=== PATIENT | female | born 1975 | race Caucasian/White ===

== ENCOUNTER 2019-09-14 13:23 | Emergency (ER) | payer OTHER, SELFPAY ==
[2019-09-14 13:45] VITALS: BP 108/69; PULSE 86; RESP 16; TEMP 36.4; O2SAT 97
--- NOTE | 2019-09-14 14:15 | ED.ALLEREA ---
HPI - Allergic Reaction General Chief complaint: Allergic Reaction Stated complaint: poisen wiley Source: patient Mode of arrival: ambulatory Limitations: no limitations History of Present Illness HPI narrative: Patient is a 44-year-old female who presents emergency department with complaints of poison wiley. Of this patient as states they have been clearing a lot in order to build a home, and had a lot of poison wiley exposure. Both she and her son have poison wiley. complaint: allergic reaction Onset (ago): day(s) Exposure: plant Symptoms: rash and itching Severity: mild Treatment prior to arrival: benadryl Related Data Allergies Allergy/AdvReac Type Severity Reaction Status Date / Time Penicillins Allergy Unknown Anaphylaxis Verified 09/14/19 14:11 Review of Systems Review of Systems: All systems reviewed & are unremarkable except as noted in HPI and below PMFSH Family History Family History Father Hypertension Mother Hypertension Cerebrovascular accident Social History Social History Smoking status: Never smoker Exam Const: General: no acute distress and alert Nutritional Appearance: well nourished Orientation/consciousness: patient oriented x3 HENMT: Head: normal to inspection Eyes: Conjunctivae: conjunctivae normal Pupils: Equal, round and reactive pupils present Neck: Neck: normal visual inspection Chest: Chest palpation & inspection: normal inspection of the chest Resp: Effort & Inspection: normal respiratory effort Auscultation: clear to auscultation bilaterally Cardio: Rate: regular rate Rhythm: regular rhythm GI: GI Palp: Yes Soft to palpation and No Tenderness to palpation present (GI) Auscultation: normal bowel sounds Back/Spine/Pelvis: Back: no CVA tenderness Skin: General skin exam: normal color Other: Patient has poison wiley to bilateral upper extremities, and a small amount on her abdomen. Patient skin has mild erythema and blisters both open and closed consistent with contact dermatitis Neuro: General: patient oriented x3 Psych: Affect: normal affect Course Vital Signs Vital signs: Vital Signs Temperature 36.4 C L 09/14/19 13:45 Pulse Rate 86 09/14/19 13:45 Respiratory Rate 16 09/14/19 13:45 Blood Pressure 108/69 09/14/19 13:45 Pulse Oximetry 97 09/14/19 13:45 Temperature 36.4 C L 09/14/19 13:45 Pulse Rate 86 09/14/19 13:45 Respiratory Rate 16 09/14/19 13:45 Blood Pressure 108/69 09/14/19 13:45 Pulse Oximetry 97 09/14/19 13:45 Discharge Plan Discharge Clinical Impression: Contact dermatitis Patient Disposition: Home, Self-Care Condition: Stable Instructions: Antibiotic Form, Contact Dermatitis (ED) Prescriptions: New prednisone 20 mg tablet 20 mg PO DAILY Qty: 20 RF: 0 Interventions: Discharge Disposition Last Done: 09/14/19 14:40 Follow-up/Referrals: Hunter Garcia MD [Primary Care Provider] - Time of Disposition: 14:19 Discharge Date/Time: 09/14/19 14:40
== END 2019-09-14 14:40 | disposition home or self-care (01) ==
PROVIDERS: Emergency Provider Emergency Medicine; PCP Internal Medicine
DX: L23.7 Allergic contact dermatitis due to plants, except food (principal)
CPT/HCPCS: 99283

== ENCOUNTER 2019-11-16 10:57 | Outpatient (CLI) | payer OTHER, SELFPAY ==
[2019-11-17 01:52] LABS: SARS-CoV-2 RNA PCR Negative
== END 2019-11-16 10:58 | disposition home or self-care (01) ==
LOC: CHSLAB 11:05
PROVIDERS: PCP Internal Medicine; Visit Provider Internal Medicine
DX: Z20.828 Contact with and (suspected) exposure to other viral communicable diseases (principal)
CPT/HCPCS: 87635; C9803; U0003

== ENCOUNTER 2020-01-09 15:51 | Outpatient (CLI) | payer BC, SELFPAY ==
[2020-01-10 13:32] LABS: SARS-CoV-2 RNA PCR Negative
== END 2020-01-09 15:52 | disposition home or self-care (01) ==
LOC: CHSLAB 15:56
PROVIDERS: PCP Internal Medicine; Visit Provider Internal Medicine
DX: Z20.828 Contact with and (suspected) exposure to other viral communicable diseases (principal)
CPT/HCPCS: 87635; C9803; U0003